=== PATIENT | female | born 1995 | race African-American/Black ===

== ENCOUNTER → 2019-07-08 | Outpatient (CLI) | payer MEDICARE, MEDICAID ==
--- NOTE | 2019-07-08 17:20 | Diagnostic Imaging Report ---
PROCEDURE: MRI left joint lower extremity without contrast. TECHNIQUE: Multiplanar, multisequence non contrast-enhanced MRI of the left lower extremity was accomplished. INDICATION: Left ankle pain since injury in 2013. FINDINGS: The ankle mortise is in good alignment. The articulating surfaces are smooth. No evidence of chondral defects or cortical fracture. There is no marrow edema. No subcortical cystic change. The deltoid ligaments are intact. The talofibular ligaments are intact. The peroneus brevis and longus appear normal. The flexor hallucis longus and brevis and posterior tibial tendons are normal. The Achilles tendon is normal. There is no fluid within the tendon sheaths. The surrounding soft tissues appear normal. No joint effusion. IMPRESSION: Normal MRI of the left ankle. No cartilage or bony abnormality. No tendon or ligamentous injury demonstrated. Dictated by: Dictated on workstation # [id number]
== END ==
LOC: RAD 13:04
PROVIDERS: ATTEND Podiatrist Foot & Ankle Surgery
DX: M76.822 Posterior tibial tendinitis, left leg (principal)
CPT/HCPCS: 73721